=== PATIENT | female | born 1935 | race Caucasian/White ===

== ENCOUNTER 2017-03-06 21:01 | Inpatient (IN) | payer OTHER ==
[~2017-03-06] VITALS: Ht 170.2 cm; Wt 89.1 kg
[~2017-03-06 21:01] MED LIST: ETOMIDATE 2 MG/ML 10 ML VIAL IVP ONE; VECURONIUM BROMIDE 10 MG/VIAL IVP ONE
[2017-03-06] MEDS ORDERED: SODIUM CHLORIDE 0.9% 250 ML IV ONE (21:14)
[2017-03-06] MEDS ORDERED: GLUCAGON,HUMAN RECOMBINANT 1 MG VIAL IVP ONE (21:15)
[2017-03-06] MEDS ORDERED: HYD25 PO (21:25)
[2017-03-06] MEDS ORDERED: GABA-529 PO (21:25)
[2017-03-06] MEDS ORDERED: DSS100 PO (21:25)
[2017-03-06] MEDS ORDERED: ASPI-1182 PO (21:25)
[2017-03-06] MEDS ORDERED: METO50 PO (21:25)
[2017-03-06] MEDS ORDERED: HALO5 PO (21:25)
[2017-03-06] MEDS ORDERED: INSREG SQ ×2 (21:25)
[2017-03-06] MEDS ORDERED: DIPH30C TP (21:25)
[2017-03-06] MEDS ORDERED: ATOR40TA28 PO (21:25)
[2017-03-06] MEDS ORDERED: INSNPH SQ ×2 (21:25)
[2017-03-06] MEDS ORDERED: QUET25TA PO (21:25)
[2017-03-06] MEDS ORDERED: OMEP20 PO (21:25)
[2017-03-06 21:33] LABS: HEMATOCRIT 29.8 % (36-46); HEMOGLOBIN 9.5 g/dL (12.0-16.0); MEAN CORPUSCULAR HEMOGLOBIN 27.6 pg (26.0-34.0); MEAN CORPUSCULAR HGB CONC 31.9 G/dL (31.0-37.0); MEAN CORPUSCULAR VOLUME 86 fL (80-100); RED BLOOD CELL COUNT(AUTO) 3.44 MIL/uL (4.00-5.20); RED CELL DISTRIBUTION WIDTH 23.8 % (11.5-14.5); WHITE BLOOD COUNT (AUTO) 5.4 K/uL (4.5-11.0)
[2017-03-06 21:51] LABS: INR 1.3 (0.9-1.1); PROTHROMBIN TIME 14.2 SEC (9.4-11.6)
[2017-03-06 21:52] LABS: APPEARANCE,URINE CLOUDY (CLEAR); GLUCOSE, URINE (UA) NEGATIVE (NEGATIVE); KETONES,URINE NEGATIVE (NEGATIVE); LEUKOCYTE ESTERASE ,URINE LARGE (NEGATIVE); OCCULT BLOOD,URINE MODERATE (NEGATIVE); PH,URINE 5.5 (5.0-8.0); PROTEIN,URINE TRACE (NEGATIVE)
[2017-03-06 21:54] LABS: CALCIUM, TOTAL 8.4 mg/dL (8.8-10.5); CREATININE 1.67 mg/dL (0.60-1.30); POTASSIUM 5.9 mmol/L (3.5-5.1)
[2017-03-06 22:21] LABS: ALBUMIN 3.1 g/dL (3.4-5.0); BILIRUBIN,TOTAL 0.3 mg/dL (0.1-1.0)
[2017-03-06 22:24] LABS: ADD UA MICROSCOPIC YES
[2017-03-06 22:25] LABS: RENAL EPITHELIAL CELLS,URINE Few /LPF (None Seen)
[2017-03-06] MEDS ORDERED: SODIUM BICARBONATE [ADULT] 8.4% 50 MEQ/50 ML SYRINGE IVP ONE (22:30)
[2017-03-06] MEDS ORDERED: CALCIUM GLUCONATE 1,000 MG in DEXTROSE 5%-WATER 50 ML IV ONE (22:30)
[2017-03-06 22:40] LABS: RBC MORPHOLOGY COMMENT ABNORMAL RBC MORPH
[2017-03-06 22:42] LABS: PLATELET COUNT (AUTO) 24 K/uL (150-450)
[2017-03-06 22:43] LABS: BAND NEUTROPHILS % (MANUAL) 12 % (1-5); LYMPHOCYTES % (MANUAL) 12 % (22-44); TOTAL CELLS COUNTED 100
[2017-03-06] MEDS ORDERED: CefTRIAXone 1 GM/DEXTROSE 50 ML IV ONE (23:45)
[2017-03-06] MEDS ORDERED: 0.9% SODIUM CHLORIDE 10 ML SYRINGE IVP PRN (23:45)
[2017-03-06] MEDS ORDERED: ACETAMINOPHEN 325 MG TABLET PO PRN (23:45)
[2017-03-06] MEDS ORDERED: ONDANSETRON HCL 4 MG/2 ML VIAL IVP PRN (23:45)
[2017-03-07 00:40] VITALS: BP 107/55
[2017-03-07 01:02] LABS: GLUCOSE COMMENT 1 Doctor Notified; GLUCOSE,POINT OF CARE 94 MG/DL (70-110)
[2017-03-07] MEDS ORDERED: SODIUM CHLORIDE 0.9% 1,000 ML IV SCH (03:45)
[2017-03-07 04:00] VITALS: BP 92/50
[2017-03-07] MEDS: LEVOTHYROXINE SODIUM 75 MCG TABLET PO SCH (05:22)
[2017-03-07] MEDS: INSULIN NPH,HUMAN ISOPHANE 100 UNITS/ML SQ SCH (05:22)
[2017-03-07 06:10] LABS: BILIRUBIN,TOTAL 0.3 mg/dL (0.1-1.0); CALCIUM, TOTAL 8.4 mg/dL (8.8-10.5); CREATININE 1.72 mg/dL (0.60-1.30); TOTAL PROTEIN, SERUM 6.7 g/dL (6.4-8.2)
[2017-03-07] MEDS ORDERED: DEXTROSE 50%-WATER 25 GM/50 ML SYRINGE IVP ONE ×3 (07:00→10:42)
[2017-03-07] MEDS ORDERED: SODIUM BICARBONATE [ADULT] 8.4% 50 MEQ/50 ML SYRINGE IVP ONE (07:00)
[2017-03-07] MEDS ORDERED: CALCIUM GLUCONATE 1,000 MG in DEXTROSE 5%-WATER 50 ML IV ONE (07:00)
[2017-03-07] MEDS ORDERED: INSULIN REGULAR, HUMAN 100 UNITS/ML IVP ONE ×2 (07:00)
[2017-03-07 07:15] LABS: BASOPHILS # (AUTO) 0.01 K/uL (0.00-0.20); BASOPHILS % (AUTO) 0.2 % (0.0-2.0); EOSINOPHILS # (AUTO) 0.08 K/uL (0.00-0.70); EOSINOPHILS % (AUTO) 1.34 % (1.0-6.0); HEMATOCRIT 27.7 % (36-46); HEMOGLOBIN 8.9 g/dL (12.0-16.0); LYMPHOCYTES # (AUTO) 0.6 K/uL (1.0-4.8); LYMPHOCYTES % (AUTO) 10.5 % (22.0-44.0); MEAN CORPUSCULAR HEMOGLOBIN 27.7 pg (26.0-34.0); MEAN CORPUSCULAR HGB CONC 32.1 G/dL (31.0-37.0); MEAN CORPUSCULAR VOLUME 86 fL (80-100); MONOCYTES # (AUTO) 0.1 K/uL (0.1-1.0); MONOCYTES % (AUTO) 1.7 % (2.0-9.0); NEUTROPHILS # (AUTO) 4.9 K/uL (1.8-7.7); NEUTROPHILS % (AUTO) 86.2 % (40.0-70.0); PLATELET COUNT (AUTO) 27 K/uL (150-450); RED BLOOD CELL COUNT(AUTO) 3.21 MIL/uL (4.00-5.20); WHITE BLOOD COUNT (AUTO) 5.7 K/uL (4.5-11.0)
[2017-03-07 08:00] VITALS: BP 82/31
[2017-03-07] MEDS ORDERED: ALBUMIN HUMAN 5%-12.5GM/250ML 250 ML IV ONE (08:00)
[2017-03-07] MEDS: DEXTROSE 5%-0.9% SODIUM CHL 1,000 ML IV SCH (08:21)
[2017-03-07 08:57] LABS: ABG A-A DIFF O2 153.6 mmHg (10-20.0); ABG BASE EXCESS -2.3 mmol/L (-2.0-3.0); ABG HCO3 21.9 mmol/L (22.0-26.0); ABG OXYHEMOGLOBIN 96.9 % (94.0-100.0); ABG PCO2 65 mmHg (35-45); ABG PH 7.206 (7.35-7.450); ALLEN TEST, BLOOD GAS Positive; TEMPERATURE, FAHRENHEIT, BG 92.5 FAHREN (96.0-98.6)
[2017-03-07] MEDS: ASPIRIN 81 MG EC TABLET PO SCH (09:00)
[2017-03-07] MEDS: QUEtiapine FUMARATE 25 MG TABLET PO SCH ×3 (09:00→21:00)
[2017-03-07] MEDS: GABAPENTIN 100 MG CAPSULE PO SCH ×3 (09:00→21:00)
[2017-03-07] MEDS: METOPROLOL TARTRATE 50 MG TABLET PO SCH ×2 (09:00→20:59)
[2017-03-07] MEDS: ATORVASTATIN CALCIUM 40 MG TABLET PO SCH (09:00)
[2017-03-07 09:09] LABS: RBC MORPHOLOGY COMMENT ABNORMAL RBC MORPH
[2017-03-07] MEDS: DOPamine HCL 400 MG/D5%-WATER 250 ML IV PRN (09:53)
[2017-03-07 10:17] LABS: ALBUMIN 3.1 g/dL (3.4-5.0); BILIRUBIN,TOTAL 0.3 mg/dL (0.1-1.0); CALCIUM, TOTAL 8.4 mg/dL (8.8-10.5); CREATININE 1.82 mg/dL (0.60-1.30); POTASSIUM 5.5 mmol/L (3.5-5.1); TOTAL PROTEIN, SERUM 6.6 g/dL (6.4-8.2)
[2017-03-07 10:45] LABS: ABG A-A DIFF O2 46.3 mmHg (10-20.0); ABG BASE EXCESS -3.3 mmol/L (-2.0-3.0); ABG HCO3 21.3 mmol/L (22.0-26.0); ABG PCO2 48 mmHg (35-45); ALLEN TEST, BLOOD GAS Positive; IPAP, BG 24 cm H2O; TEMPERATURE, FAHRENHEIT, BG 93.2 FAHREN (96.0-98.6)
[2017-03-07] MEDS ORDERED: BUMETANIDE 0.25 MG/ML 10 ML VIAL IVP ONE (11:15)
[2017-03-07] MEDS ORDERED: DEXTROSE 50%-WATER 25 GM/50 ML SYRINGE IVP PRN (11:30)
[2017-03-07] MEDS ORDERED: BUMETANIDE 0.25 MG/ML 4 ML VIAL IVP ONE (11:45)
[2017-03-07 12:00] VITALS: BP 115/73
[2017-03-07] MEDS: BUMETANIDE 10 MG in DEXTROSE 5%-WATER 60 ML IV SCH (12:00)
[2017-03-07 12:45] LABS: ANION GAP 5 mmol/L (8-16); CALCIUM, TOTAL 8.2 mg/dL (8.8-10.5); CARBON DIOXIDE 27 mmol/L (22-29); CHLORIDE 106 mmol/L (98-107); CREATINE KINASE, TOTAL 56 U/L (26-192); GLOMERULAR FILTR. RATE CALC 27 mL/min (>60); POTASSIUM 5.3 mmol/L (3.5-5.1); SODIUM SERUM 138 mmol/L (136-145); UREA NITROGEN, BLOOD 51 mg/dL (7-18)
[2017-03-07 12:50] LABS: LACTIC ACID 0.8 mmol/L (0.4-2.0)
[2017-03-07 16:00] VITALS: BP 113/60
[2017-03-07 16:19] LABS: CALCIUM, TOTAL 8.8 mg/dL (8.8-10.5); CREATININE 1.86 mg/dL (0.60-1.30); POTASSIUM 5.8 mmol/L (3.5-5.1)
[2017-03-07 16:28] LABS: GLUCOSE,POINT OF CARE 132 MG/DL (70-110)
[2017-03-07 16:28] LABS: GLUCOSE,POINT OF CARE 168 MG/DL (70-110)
[2017-03-07 16:28] LABS: GLUCOSE,POINT OF CARE 304 MG/DL (70-110)
[2017-03-07 16:28] LABS: GLUCOSE,POINT OF CARE 56 MG/DL (70-110)
[2017-03-07 16:28] LABS: GLUCOSE,POINT OF CARE 60 MG/DL (70-110)
[2017-03-07 16:28] LABS: GLUCOSE,POINT OF CARE 100 MG/DL (70-110)
[2017-03-07 16:28] LABS: GLUCOSE,POINT OF CARE 94 MG/DL (70-110)
[2017-03-07 16:28] LABS: GLUCOSE,POINT OF CARE 80 MG/DL (70-110)
[2017-03-07 17:05] LABS: ABG BASE EXCESS -1.2 mmol/L (-2.0-3.0); ABG OXYHEMOGLOBIN 92.4 % (94.0-100.0); ABG PCO2 56 mmHg (35-45); ABG PH 7.279 (7.35-7.450); TEMPERATURE, FAHRENHEIT, BG 95.2 FAHREN (96.0-98.6)
[2017-03-07 17:06] LABS: ALLEN TEST, BLOOD GAS Positive; IPAP, BG 24 cm H2O
[2017-03-07 18:18] LABS: GLUCOSE,POINT OF CARE 108 MG/DL (70-110)
[2017-03-07 20:00] VITALS: BP 111/64
[2017-03-07 22:00] LABS: ANION GAP 7 mmol/L (8-16); CALCIUM, TOTAL 8.4 mg/dL (8.8-10.5); CARBON DIOXIDE 27 mmol/L (22-29); CHLORIDE 105 mmol/L (98-107); CREATINE KINASE, TOTAL 47 U/L (26-192); CREATININE 1.91 mg/dL (0.60-1.30); GLOMERULAR FILTR. RATE CALC 25 mL/min (>60); POTASSIUM 5.9 mmol/L (3.5-5.1); SODIUM SERUM 139 mmol/L (136-145); UREA NITROGEN, BLOOD 54 mg/dL (7-18)
[2017-03-07] MEDS: CefTRIAXone 1 GM/DEXTROSE 50 ML IV SCH (22:59)
[2017-03-07 23:12] LABS: GLUCOSE,POINT OF CARE 104 MG/DL (70-110)
[2017-03-08] VITALS: BP 97/69
[2017-03-08] MEDS: DEXTROSE 5%-0.9% SODIUM CHL 1,000 ML IV SCH (02:44)
[2017-03-08 04:00] VITALS: BP 103/59
[2017-03-08] MEDS: DOPamine HCL 400 MG/D5%-WATER 250 ML IV PRN (05:20)
[2017-03-08 06:15] LABS: ALANINE AMINOTRANSFERASE 69 U/L (12-78); ALBUMIN 3.1 g/dL (3.4-5.0); ANION GAP 6 mmol/L (8-16); ASPARTATE AMINOTRANSFERASE 60 U/L (15-37); BILIRUBIN,TOTAL 0.3 mg/dL (0.1-1.0); CALCIUM, TOTAL 8.3 mg/dL (8.8-10.5); CARBON DIOXIDE 27 mmol/L (22-29); CHLORIDE 105 mmol/L (98-107); CREATININE 2.02 mg/dL (0.60-1.30); GLOMERULAR FILTR. RATE CALC 24 mL/min (>60); PHOSPHORUS 5.8 mg/dL (2.5-4.9); SODIUM SERUM 138 mmol/L (136-145); THYROID STIMULATING HORMONE 1.62 uIU/mL (0.36-3.74); UREA NITROGEN, BLOOD 56 mg/dL (7-18)
[2017-03-08 06:23] LABS: BASOPHILS % (AUTO) 0.4 % (0.0-2.0); EOSINOPHILS % (AUTO) 1.2 % (1.0-6.0); HEMATOCRIT 27.8 % (36-46); HEMOGLOBIN 9.1 g/dL (12.0-16.0); LYMPHOCYTES # (AUTO) 0.8 K/uL (1.0-4.8); LYMPHOCYTES % (AUTO) 9.4 % (22.0-44.0); MEAN CORPUSCULAR HEMOGLOBIN 28.5 pg (26.0-34.0); MEAN CORPUSCULAR HGB CONC 32.6 G/dL (31.0-37.0); MEAN CORPUSCULAR VOLUME 87 fL (80-100); MONOCYTES # (AUTO) 0.5 K/uL (0.1-1.0); MONOCYTES % (AUTO) 5.8 % (2.0-9.0); NEUTROPHILS # (AUTO) 7.1 K/uL (1.8-7.7); NEUTROPHILS % (AUTO) 83.2 % (40.0-70.0); PLATELET COUNT (AUTO) 30 K/uL (150-450); RED BLOOD CELL COUNT(AUTO) 3.18 MIL/uL (4.00-5.20); RED CELL DISTRIBUTION WIDTH 24.6 % (11.5-14.5); WHITE BLOOD COUNT (AUTO) 8.5 K/uL (4.5-11.0)
[2017-03-08] MEDS: INSULIN NPH,HUMAN ISOPHANE 100 UNITS/ML SQ SCH (06:30)
[2017-03-08] MEDS: LEVOTHYROXINE SODIUM 75 MCG TABLET PO SCH (06:30)
[2017-03-08 06:47] LABS: GLUCOSE,POINT OF CARE 116 MG/DL (70-110)
[2017-03-08 06:47] LABS: GLUCOSE,POINT OF CARE 126 MG/DL (70-110)
[2017-03-08 07:13] LABS: LACTATE DEHYDROGENASE 185 U/L (81-234)
[2017-03-08 07:31] LABS: CREATINE KINASE, TOTAL 35 U/L (26-192)
[2017-03-08] MEDS ORDERED: SODIUM POLYSTYRENE SULFONATE 15 GM/60 ML SUSPENSION BOTTLE PR ONE (07:45)
[2017-03-08] MEDS ORDERED: CALCIUM GLUCONATE 100 MG/ML 10 ML IVP ONE (07:45)
[2017-03-08 07:58] LABS: B-TYPE NATRIURETIC PEPTIDE 561 pg/mL (0-100)
[2017-03-08 08:00] VITALS: BP 113/74
[2017-03-08] MEDS: BUMETANIDE 10 MG in DEXTROSE 5%-WATER 60 ML IV SCH (08:13)
[2017-03-08 12:00] VITALS: BP 113/74
[2017-03-08 12:07] LABS: ABG A-A DIFF O2 276.8 mmHg (10-20.0); ABG BASE EXCESS -1.1 mmol/L (-2.0-3.0); ABG HCO3 22.7 mmol/L (22.0-26.0); ABG OXYHEMOGLOBIN 89.5 % (94.0-100.0); TEMPERATURE, FAHRENHEIT, BG 98.6 FAHREN (96.0-98.6)
[2017-03-08 12:08] LABS: ABG PCO2 72 mmHg (35-45); ABG PH 7.193 (7.35-7.450); ALLEN TEST, BLOOD GAS Positive
[2017-03-08] MEDS ORDERED: RAPID SEQUENCE KIT [RSI] 1 EACH KIT ONE ×2 (12:18)
[2017-03-08 12:25] LABS: APPEARANCE,UNSPUN,BODY FLUID CLOUDY (CLEAR)
[2017-03-08 12:26] LABS: COLOR,BODY FLUID LT YELLOW (LT YELLOW); PH, BODY FLUID 8
[2017-03-08] MEDS ORDERED: ETOMIDATE 2 MG/ML 10 ML VIAL IVP ONE (12:30)
[2017-03-08] MEDS ORDERED: VECURONIUM BROMIDE 10 MG/VIAL IVP ONE (12:30)
[2017-03-08] MEDS ORDERED: AMIODARONE HCL 200 MG TABLET PO SCH (14:30)
[2017-03-08 14:32] LABS: CALCIUM, TOTAL 8.7 mg/dL (8.8-10.5); CREATININE 1.97 mg/dL (0.60-1.30); POTASSIUM 5.9 mmol/L (3.5-5.1)
[2017-03-08 14:35] LABS: ABG A-A DIFF O2 266.6 mmHg (10-20.0); ABG BASE EXCESS -0.6 mmol/L (-2.0-3.0); ABG HCO3 24.4 mmol/L (22.0-26.0); ABG OXYHEMOGLOBIN 97.6 % (94.0-100.0); ABG PCO2 31 mmHg (35-45); ALLEN TEST, BLOOD GAS Positive; TEMPERATURE, FAHRENHEIT, BG 98.6 FAHREN (96.0-98.6)
[2017-03-08] MEDS: ASPIRIN 81 MG EC TABLET PO SCH (15:22)
[2017-03-08] MEDS: ATORVASTATIN CALCIUM 40 MG TABLET PO SCH (15:23)
[2017-03-08] MEDS: GABAPENTIN 100 MG CAPSULE PO SCH ×3 (15:23→19:46)
[2017-03-08] MEDS: METOPROLOL TARTRATE 50 MG TABLET PO SCH (15:23)
[2017-03-08] MEDS: QUEtiapine FUMARATE 25 MG TABLET PO SCH ×3 (15:24→19:46)
[2017-03-08 15:28] LABS: GLUCOSE,POINT OF CARE 127 MG/DL (70-110)
[2017-03-08] MEDS: PROPOFOL 1000 MG/ISO-OSM 100 ML IV SCH (15:42)
[2017-03-08 16:00] VITALS: BP 92/59
[2017-03-08] MEDS ORDERED: SODIUM POLYSTYRENE SULFONATE 15 GM/60 ML SUSPENSION BOTTLE PO ONE ×2 (16:15→20:00)
[2017-03-08] MEDS ORDERED: NOREPINEPHRINE 4 MG/D5%-WATER 250 ML IV PRN (18:00)
[2017-03-08] MEDS ORDERED: PHENYLEPHRINE 200 MG/D5%-WATER 250 ML IV PRN (19:16)
[2017-03-08 19:41] LABS: HEMATOCRIT 30.4 % (36-46); HEMOGLOBIN 9.7 g/dL (12.0-16.0); MEAN CORPUSCULAR HEMOGLOBIN 27.7 pg (26.0-34.0); MEAN CORPUSCULAR VOLUME 87 fL (80-100); PLATELET COUNT (AUTO) 31 K/uL (150-450); RED BLOOD CELL COUNT(AUTO) 3.51 MIL/uL (4.00-5.20); RED CELL DISTRIBUTION WIDTH 24.9 % (11.5-14.5); WHITE BLOOD COUNT (AUTO) 20.2 K/uL (4.5-11.0)
[2017-03-08 20:00] VITALS: BP 221/132
[2017-03-08 20:01] LABS: BAND NEUTROPHILS % (MANUAL) 21 % (1-5); LYMPHOCYTES % (MANUAL) 13 % (22-44); RBC MORPHOLOGY COMMENT ABNORMAL RBC MORPH; TOTAL CELLS COUNTED 100
[2017-03-08] MEDS: CefTRIAXone 1 GM/DEXTROSE 50 ML IV SCH (23:08)
[2017-03-09] VITALS (9 sets, daily range): BP systolic 96–171; BP diastolic 40–80
[2017-03-09 00:52] LABS: GLUCOSE,POINT OF CARE 161 MG/DL (70-110)
[2017-03-09] MEDS ORDERED: DEXTROSE 5% IV SCH (03:15)
[2017-03-09] MEDS ORDERED: BUMETANIDE IV SCH (03:15)
[2017-03-09] MEDS ORDERED: WATER IV SCH (03:15)
[2017-03-09] MEDS: PROPOFOL 1000 MG/ISO-OSM 100 ML IV SCH ×2 (04:52→18:00)
[2017-03-09 05:51] LABS: ALBUMIN 2.3 g/dL (3.4-5.0); BILIRUBIN,TOTAL 0.5 mg/dL (0.1-1.0); CALCIUM, TOTAL 8.3 mg/dL (8.8-10.5); CREATININE 2.13 mg/dL (0.60-1.30); POTASSIUM 4.7 mmol/L (3.5-5.1); TOTAL PROTEIN, SERUM 5.7 g/dL (6.4-8.2)
[2017-03-09] MEDS: INSULIN NPH,HUMAN ISOPHANE 100 UNITS/ML SQ SCH (05:51)
[2017-03-09 05:58] LABS: MEAN CORPUSCULAR HEMOGLOBIN 28.3 pg (26.0-34.0); MEAN CORPUSCULAR HGB CONC 32.7 G/dL (31.0-37.0); MEAN CORPUSCULAR VOLUME 87 fL (80-100); PLATELET COUNT (AUTO) 26 K/uL (150-450); RED BLOOD CELL COUNT(AUTO) 2.55 MIL/uL (4.00-5.20); WHITE BLOOD COUNT (AUTO) 8.5 K/uL (4.5-11.0)
[2017-03-09 06:06] LABS: HEMATOCRIT 22.1 % (36-46); HEMOGLOBIN 7.2 g/dL (12.0-16.0)
[2017-03-09] MEDS: LEVOTHYROXINE SODIUM 75 MCG TABLET PO SCH (06:30)
[2017-03-09] MEDS ORDERED: BUMETANIDE 10 MG in DEXTROSE 5%-WATER 60 ML IV SCH (07:00)
[2017-03-09 07:02] LABS: BAND NEUTROPHILS % (MANUAL) 9 % (1-5); EOSINOPHILS % (MANUAL) 1 % (1-6); LYMPHOCYTES % (MANUAL) 14 % (22-44); RBC MORPHOLOGY COMMENT ABNORMAL RBC MORPH; TOTAL CELLS COUNTED 100
[2017-03-09] MEDS: QUEtiapine FUMARATE 25 MG TABLET PO SCH ×3 (09:00→19:49)
[2017-03-09 09:12] LABS: GLUCOSE,POINT OF CARE 193 MG/DL (70-110)
[2017-03-09] MEDS: DEXTROSE 5% IV SCH ×2 (09:47→17:41)
[2017-03-09] MEDS: BUMETANIDE IV SCH ×2 (09:47→17:41)
[2017-03-09] MEDS: WATER IV SCH ×2 (09:47→17:41)
[2017-03-09] MEDS ORDERED: SODIUM CHLORIDE 0.9% 250 ML IV ONE (10:00)
[2017-03-09] MEDS: GABAPENTIN 100 MG CAPSULE PO SCH ×3 (13:44→19:49)
[2017-03-09] MEDS: ATORVASTATIN CALCIUM 40 MG TABLET PO SCH (13:44)
[2017-03-09] MEDS: ASPIRIN 81 MG EC TABLET PO SCH (13:47)
[2017-03-09 15:41] LABS: BASOPHILS % (AUTO) 1.1 % (0.0-2.0); EOSINOPHILS % (AUTO) 1.2 % (1.0-6.0); HEMATOCRIT 23.1 % (36-46); HEMOGLOBIN 7.6 g/dL (12.0-16.0); LYMPHOCYTES # (AUTO) 0.9 K/uL (1.0-4.8); LYMPHOCYTES % (AUTO) 11.7 % (22.0-44.0); MEAN CORPUSCULAR HEMOGLOBIN 28.2 pg (26.0-34.0); MEAN CORPUSCULAR VOLUME 85 fL (80-100); MONOCYTES # (AUTO) 0.5 K/uL (0.1-1.0); MONOCYTES % (AUTO) 6.2 % (2.0-9.0); NEUTROPHILS % (AUTO) 79.8 % (40.0-70.0); PLATELET COUNT (AUTO) 29 K/uL (150-450); RED CELL DISTRIBUTION WIDTH 23.3 % (11.5-14.5); WHITE BLOOD COUNT (AUTO) 7.6 K/uL (4.5-11.0)
[2017-03-09 16:21] LABS: RBC MORPHOLOGY COMMENT ABNORMAL RBC MORPH
[2017-03-09] MEDS ORDERED: DEXTROSE 50%-WATER 25 GM/50 ML SYRINGE IVP PRN ×2 (18:15→19:45)
[2017-03-09] MEDS ORDERED: INSULIN ASPART 100 UNITS/ML SQ PRN (18:15)
[2017-03-09] MEDS ORDERED: SODIUM CHLORIDE 0.9% 500 ML IV ONE (19:25)
[2017-03-09 21:25] LABS: TOTAL PROTEIN,BODY FLUID,REF 2.5 g/dL
[2017-03-09 23:13] LABS: GLUCOSE,POINT OF CARE 188 MG/DL (70-110)
[2017-03-09 23:13] LABS: GLUCOSE,POINT OF CARE 176 MG/DL (70-110)
[2017-03-09] MEDS: CefTRIAXone 1 GM/DEXTROSE 50 ML IV SCH (23:16)
[2017-03-10] VITALS: BP 119/76
[2017-03-10 01:33] LABS: GLUCOSE,POINT OF CARE 158 MG/DL (70-110)
[2017-03-10 04:00] VITALS: BP 134/70
[2017-03-10] MEDS: WATER IV SCH (04:48)
[2017-03-10] MEDS: DEXTROSE 5% IV SCH (04:48)
[2017-03-10] MEDS: BUMETANIDE IV SCH (04:48)
[2017-03-10 05:29] LABS: BASOPHILS # (AUTO) 0.01 K/uL (0.00-0.20); BASOPHILS % (AUTO) 0.1 % (0.0-2.0); EOSINOPHILS # (AUTO) 0.26 K/uL (0.00-0.70); EOSINOPHILS % (AUTO) 3.09 % (1.0-6.0); HEMATOCRIT 24.3 % (36-46); HEMOGLOBIN 7.8 g/dL (12.0-16.0); LYMPHOCYTES # (AUTO) 1.2 K/uL (1.0-4.8); LYMPHOCYTES % (AUTO) 13.9 % (22.0-44.0); MEAN CORPUSCULAR HGB CONC 32.3 G/dL (31.0-37.0); MEAN CORPUSCULAR VOLUME 87 fL (80-100); MONOCYTES # (AUTO) 0.3 K/uL (0.1-1.0); MONOCYTES % (AUTO) 3.2 % (2.0-9.0); NEUTROPHILS # (AUTO) 6.8 K/uL (1.8-7.7); NEUTROPHILS % (AUTO) 79.8 % (40.0-70.0); RED CELL DISTRIBUTION WIDTH 23.1 % (11.5-14.5); WHITE BLOOD COUNT (AUTO) 8.6 K/uL (4.5-11.0)
[2017-03-10 05:47] LABS: ALBUMIN 2.6 g/dL (3.4-5.0); BILIRUBIN,TOTAL 0.8 mg/dL (0.1-1.0); CALCIUM, TOTAL 8.9 mg/dL (8.8-10.5); CREATININE 1.83 mg/dL (0.60-1.30); MAGNESIUM 1.8 mg/dL (1.80-2.40); TOTAL PROTEIN, SERUM 6.1 g/dL (6.4-8.2)
[2017-03-10 05:58] LABS: POTASSIUM 2.7 mmol/L (3.5-5.1)
[2017-03-10] MEDS: LEVOTHYROXINE SODIUM 75 MCG TABLET PO SCH (06:22)
[2017-03-10] MEDS: POTASSIUM CHL 10 MEQ/WATER 50 ML IV SCH ×4 (06:23→10:25)
[2017-03-10 08:00] VITALS: BP 153/58
[2017-03-10] MEDS: ATORVASTATIN CALCIUM 40 MG TABLET PO SCH (08:12)
[2017-03-10] MEDS: GABAPENTIN 100 MG CAPSULE PO SCH ×3 (08:12→20:53)
[2017-03-10] MEDS: ASPIRIN 81 MG EC TABLET PO SCH (08:12)
[2017-03-10] MEDS: QUEtiapine FUMARATE 25 MG TABLET PO SCH ×3 (08:13→20:53)
[2017-03-10 08:42] LABS: PLATELET COUNT (AUTO) 55 K/uL (150-450); RBC MORPHOLOGY COMMENT ABNORMAL RBC MORPH
[2017-03-10] MEDS: METOPROLOL TARTRATE 25 MG TABLET PO SCH ×2 (09:46→20:53)
[2017-03-10] MEDS: PROPOFOL 1000 MG/ISO-OSM 100 ML IV SCH ×2 (09:49→23:27)
[2017-03-10 10:11] LABS: ABG HCO3 31.6 mmol/L (22.0-26.0); ABG OXYHEMOGLOBIN 95.6 % (94.0-100.0); ABG PCO2 28 mmHg (35-45); TEMPERATURE, FAHRENHEIT, BG 97.5 FAHREN (96.0-98.6)
[2017-03-10 10:12] LABS: ALLEN TEST, BLOOD GAS Positive
[2017-03-10] MEDS: POTASSIUM CHLORIDE 10% 40 MEQ/30 ML LIQUID UDCUP NG SCH ×2 (11:43→20:52)
[2017-03-10 12:00] VITALS: BP 131/74
[2017-03-10 12:22] LABS: GLUCOSE,POINT OF CARE 148 MG/DL (70-110)
[2017-03-10] MEDS: INSULIN REGULAR, HUMAN 100 UNITS/ML SQ PRN ×2 (12:36→23:28)
[2017-03-10 16:00] VITALS: BP 146/75
[2017-03-10 20:00] VITALS: BP 118/65
[2017-03-10] MEDS: CefTRIAXone 1 GM/DEXTROSE 50 ML IV SCH (22:57)
[2017-03-11] VITALS: BP 143/60
[2017-03-11] MEDS: PROPOFOL 1000 MG/ISO-OSM 100 ML IV SCH ×3 (03:27→20:18)
[2017-03-11 04:00] VITALS: BP 98/51
[2017-03-11] MEDS: LEVOTHYROXINE SODIUM 75 MCG TABLET PO SCH (05:14)
[2017-03-11 05:32] LABS: GLUCOSE,POINT OF CARE 119 MG/DL (70-110)
[2017-03-11 05:32] LABS: GLUCOSE,POINT OF CARE 147 MG/DL (70-110)
[2017-03-11 05:38] LABS: BASOPHILS # (AUTO) 0.04 K/uL (0.00-0.20); BASOPHILS % (AUTO) 0.6 % (0.0-2.0); EOSINOPHILS # (AUTO) 0.49 K/uL (0.00-0.70); EOSINOPHILS % (AUTO) 7.26 % (1.0-6.0); HEMATOCRIT 23.9 % (36-46); HEMOGLOBIN 7.8 g/dL (12.0-16.0); LYMPHOCYTES # (AUTO) 1.2 K/uL (1.0-4.8); LYMPHOCYTES % (AUTO) 17.6 % (22.0-44.0); MEAN CORPUSCULAR HEMOGLOBIN 28.1 pg (26.0-34.0); MEAN CORPUSCULAR HGB CONC 32.7 G/dL (31.0-37.0); MEAN CORPUSCULAR VOLUME 86 fL (80-100); MONOCYTES # (AUTO) 0.2 K/uL (0.1-1.0); MONOCYTES % (AUTO) 2.6 % (2.0-9.0); NEUTROPHILS # (AUTO) 4.9 K/uL (1.8-7.7); NEUTROPHILS % (AUTO) 71.9 % (40.0-70.0); PLATELET COUNT (AUTO) 49 K/uL (150-450); RED BLOOD CELL COUNT(AUTO) 2.78 MIL/uL (4.00-5.20); RED CELL DISTRIBUTION WIDTH 23.1 % (11.5-14.5); WHITE BLOOD COUNT (AUTO) 6.8 K/uL (4.5-11.0)
[2017-03-11 05:41] LABS: ALBUMIN 2.4 g/dL (3.4-5.0); BILIRUBIN,TOTAL 0.5 mg/dL (0.1-1.0); CALCIUM, TOTAL 8.5 mg/dL (8.8-10.5); CREATININE 1.69 mg/dL (0.60-1.30); MAGNESIUM 1.7 mg/dL (1.80-2.40); POTASSIUM 3.5 mmol/L (3.5-5.1)
[2017-03-11 06:12] LABS: RBC MORPHOLOGY COMMENT ABNORMAL RBC MORPH
[2017-03-11] MEDS ORDERED: POTASSIUM CHLORIDE 10% 40 MEQ/30 ML LIQUID UDCUP GT ONE (06:15)
[2017-03-11 08:00] VITALS: BP 107/48
[2017-03-11] MEDS: QUEtiapine FUMARATE 25 MG TABLET PO SCH ×2 (08:21→15:26)
[2017-03-11] MEDS: GABAPENTIN 100 MG CAPSULE PO SCH ×2 (08:21→15:26)
[2017-03-11] MEDS: ATORVASTATIN CALCIUM 40 MG TABLET PO SCH (08:21)
[2017-03-11] MEDS: METOPROLOL TARTRATE 25 MG TABLET PO SCH ×2 (08:21→20:19)
[2017-03-11] MEDS: ASPIRIN 81 MG EC TABLET PO SCH (08:22)
[2017-03-11] MEDS: POTASSIUM CHLORIDE 10% 40 MEQ/30 ML LIQUID UDCUP NG SCH (08:22)
[2017-03-11 10:37] LABS: ABG A-A DIFF O2 110.6 mmHg (10-20.0); ABG BASE EXCESS 6.6 mmol/L (-2.0-3.0); ABG OXYHEMOGLOBIN 94.4 % (94.0-100.0); ABG PCO2 38 mmHg (35-45); ABG PH 7.508 (7.35-7.450); ALLEN TEST, BLOOD GAS Positive
[2017-03-11] MEDS: INSULIN REGULAR, HUMAN 100 UNITS/ML SQ PRN ×2 (11:41→17:33)
[2017-03-11 12:00] VITALS: BP 107/55
[2017-03-11 16:00] VITALS: BP 121/59
[2017-03-11 20:18] VITALS: BP 101/49
[2017-03-12 04:52] LABS: GLUCOSE,POINT OF CARE 157 MG/DL (70-110)
[2017-03-12 04:52] LABS: GLUCOSE COMMENT 1 Received Meds; GLUCOSE,POINT OF CARE 156 MG/DL (70-110)
[2017-03-13 05:08] LABS: COMPLEMENT C3 94 mg/dL (82-167); COMPLEMENT C4 21 mg/dL (14-44)
[2017-03-13 08:38] LABS: ALPHA-1 URINE (ELP) 2.1 %; ALPHA-2 URINE(ELP) 10.7 %; BETA URINE(ELP) 14.4 %; GAMMA URINE(ELP) 21.2 %; TOTAL PROTEIN URINE 9.3 mg/dL (Not Estab.)
[2017-03-13 09:44] LABS: ALBUMIN (IFE & ELECTROPHOR) 3.1 g/dL (2.9-4.4); ALPHA-2 (IFE & PEP) 0.7 g/dL (0.4-1.0); IGG (IMMUNOFIXATION) 1399 mg/dL (700-1600); M-SPIKE (IEP) Not Observed g/dL (Not Observed); TOTAL PROTEIN 6.5 g/dL (6.0-8.5)
== END 2017-03-11 20:50 | disposition short-term general hospital (02) | DRG 871 ==
LOC: EMS 21:03 → ICU 23:47
PROVIDERS: ADMIT Internal Medicine; ATTEND Internal Medicine
PROC: 5A09357 Assistance with Respiratory Ventilation, Less than 24 Consecutive Hours, Continuous Positive Airway Pressure (ICD-10-PCS; principal; 2017-03-06)
PROC: 5A1945Z Respiratory Ventilation, 24-96 Consecutive Hours (ICD-10-PCS; 2017-03-08)
PROC: 0BH17EZ Insertion of Endotracheal Airway into Trachea, Via Natural or Artificial Opening (ICD-10-PCS; 2017-03-08)
PROC: 0W993ZZ Drainage of Right Pleural Cavity, Percutaneous Approach (ICD-10-PCS; 2017-03-08)
PROC: 30233R1 Transfusion of Nonautologous Platelets into Peripheral Vein, Percutaneous Approach (ICD-10-PCS; 2017-03-09)
PROC: 30233N1 Transfusion of Nonautologous Red Blood Cells into Peripheral Vein, Percutaneous Approach (ICD-10-PCS; 2017-03-09)
DX: A41.9 Sepsis, unspecified organism (principal); J96.01 Acute respiratory failure with hypoxia; R65.21 Severe sepsis with septic shock; E87.4 Mixed disorder of acid-base balance; I50.31 Acute diastolic (congestive) heart failure; E44.0 Moderate protein-calorie malnutrition; J96.02 Acute respiratory failure with hypercapnia; J18.9 Pneumonia, unspecified organism; N17.9 Acute kidney failure, unspecified; E11.22 Type 2 diabetes mellitus with diabetic chronic kidney disease; D69.6 Thrombocytopenia, unspecified; N04.9 Nephrotic syndrome with unspecified morphologic changes; N39.0 Urinary tract infection, site not specified; I13.0 Hypertensive heart and chronic kidney disease with heart failure and stage 1 through stage 4 chronic kidney disease, or unspecified chronic kidney disease; E11.649 Type 2 diabetes mellitus with hypoglycemia without coma; I48.91 Unspecified atrial fibrillation; E66.01 Morbid (severe) obesity due to excess calories; E87.5 Hyperkalemia; T68.XXXA Hypothermia, initial encounter; R14.0 Abdominal distension (gaseous); F03.90 Unspecified dementia, unspecified severity, without behavioral disturbance, psychotic disturbance, mood disturbance, and anxiety; R21 Rash and other nonspecific skin eruption; F22 Delusional disorders; D64.9 Anemia, unspecified; K21.9 Gastro-esophageal reflux disease without esophagitis; Z87.440 Personal history of urinary (tract) infections; E78.5 Hyperlipidemia, unspecified; R00.1 Bradycardia, unspecified; N18.9 Chronic kidney disease, unspecified; K59.00 Constipation, unspecified; E87.6 Hypokalemia; Z79.899 Other long term (current) drug therapy; Z79.4 Long term (current) use of insulin; Z79.82 Long term (current) use of aspirin; T50.2X5A Adverse effect of carbonic-anhydrase inhibitors, benzothiadiazides and other diuretics, initial encounter; Y93.89 Activity, other specified; Y92.238 Other place in hospital as the place of occurrence of the external cause; Y99.8 Other external cause status; Z68.30 Body mass index [BMI] 30.0-30.9, adult
CPT/HCPCS: 32555; 36430; 71250; 72192; 74150; 76700; 76942; 82465; 82570; 82784; 82805; 82945; 82962; 83036; 83605; 83615; 83735; 83935; 83986; 84100; 84132; 84133; 84155; 84156; 84157; 84165; 84166; 84300; 84443; 86160; 86334; 86850; 86900; 86901; 86920; 87015; 87040; 87070; 87081; 87086; 87101; 87205; 88108; 89051; 93005; 93306; 94002; 94003; 94660; 96365; 96375; 99285; J0610; J0696; J1265; J1610; J1815; J2370; J2704; J3480; J3490; J7030; J7040; J7042; J7050; J7060; P9016; P9035